=== PATIENT | male | born 1990 | race African-American/Black ===

== ENCOUNTER 2023-02-17 11:31 | Emergency (ER) | payer MEDICAID ==
[~2023-02-17] VITALS: Ht 177.8 cm; Wt 96.0 kg
[2023-02-17] MEDS ORDERED: IBUPROFEN 600MG TABLET PO STA (13:08)
[2023-02-17] MEDS ORDERED: IBUPROFEN 600MG TABLET PO NR (15:30)
[2023-02-17 15:37] VITALS: BP 132/86
[2023-02-17] MEDS ORDERED: IBUP-2029 MT (15:58)
== END 2023-02-17 16:32 | disposition home or self-care (01) ==
LOC: ER 11:31
DX: R07.9 Chest pain, unspecified (principal)
CPT/HCPCS: 71045; 93005; 99283; Z7610